=== PATIENT | female | born 1985 | race Caucasian/White ===

== ENCOUNTER 2024-05-07 09:34 | Day surgery (SDC) | payer BC ==
[2024-05-07 10:06] LABS: Absolute Basophils 0.1 K/uL (0-0.5); Absolute Eosinophils 0.8 K/uL (0-0.5); Absolute Lymphocytes (CBC) 3.3 K/uL (0.7-4.9); Absolute Monocytes 0.5 K/uL (0.1-1.3); Absolute Neutrophil 6.8 K/uL (1.8-8.0); Basophils % 1.2 % (0-1.3); Hematocrit 44.9 % (36.0-45.0); Hemoglobin 14.7 g/dL (12.0-15.0); Lymphocytes % 28.5 % (15.3-44.8); MCH 28.1 pg (27.0-35.0); MCHC 32.7 g/dL (32.0-36.0); MCV 86.1 fL (80-100); MPV 7.7 fL (7.6-11.3); Monocytes % 4.2 % (3.3-12.3); Neutrophils % 59.1 % (41.7-73.7); Nucleated Red Blood Cells % 0.1 % (0-0); Platelets 418 thou/uL (152-406); RBC Red Blood Cell Count 5.22 M/uL (3.86-4.86); Red Cell Distribution Width 16.2 % (12.1-15.2)
[2024-05-07] MEDS ORDERED: Ringers Lactate 1,000 ML IV ONE (10:06)
[2024-05-07 10:17] LABS: Anion Gap 7.2 mEq/L (5.0-15.0); Potassium 4.2 mEq/L (3.5-5.1)
[2024-05-07] MEDS ORDERED: MIDAZOLAM HCL 2 MG/2 ML INJ ONE (11:55)
[2024-05-07] MEDS ORDERED: propofoL 200 MG/20 ML VIAL IV ONE (11:55)
[2024-05-07] MEDS ORDERED: FENTANYL CITR 100 MCG/2 ML ONE (11:55)
[2024-05-07] MEDS ORDERED: KETOROLAC 30 MG/ML INJ ONE (11:55)
[2024-05-07] MEDS ORDERED: ONDANSETRON 4 MG/2 ML VIAL ONE (11:55)
[2024-05-07] MEDS ORDERED: LIDOCAINE 1% MPF 5 ML VIAL ONE (11:55)
[2024-05-07] MEDS: CIPROFLOXACIN 400mg IV 400 MG/200 ML BAG IV ONE (12:35)
[2024-05-07] MEDS: BUPIVACAINE 0.5% PF 10 ML VIAL ONE (12:55)
--- NOTE | 2024-05-07 13:10 | P.BOP ---
Preoperative diagnosis: right ankle infected subQ mass with abscess Postoperative diagnosis: same Primary procedure: Excisional biopsy of right ankle infected subQ mass with abscess Secondary procedure: 3x3x0.5cm Estimated blood loss: <5cc Specimen: culture, mass Findings: see dicta Anesthesia: General Complications: None Transferred to: Recovery Room Condition: Good
[2024-05-07] MEDS: HYDROMORPHONE HCL 1 MG/ML INJ ONE (13:50)
[2024-05-07] MEDS: ONDANSETRON 4 MG/2 ML VIAL ONE (14:01)
[2024-05-07 14:37] VITALS: BP 109/67; TEMP 97; O2SAT 96
[2024-05-07] MEDS ORDERED: HYDROCODONE/APAP 10/325 TAB ONE (14:41)
[2024-05-07] MEDS: HYDROCODONE/APAP 10/325 TAB PO ONE (14:46)
--- NOTE | 2024-05-08 01:06 | OP ---
Date of Procedure: 05/07/2024 Surgeon: Kwesi Bill MD Preoperative Diagnosis: Right ankle infected subcutaneous mass with abscess. Postoperative Diagnosis: Right ankle infected subcutaneous mass with abscess. Procedure: Excisional biopsy of right ankle infected subcutaneous mass with abscess drainage about 3 x 3 x 0.5 cm and the abscess is extended to 5 x 5 cm. Estimated Blood Loss: Less than 5 cc. Findings: The patient has a mass infected with a cavity, which is the cavity is about 5 x 5 cm, but the dense tissue and the mass is about 3 x 3 cm that was the one sent to the pathologist. Complications: None. Anesthesia: General plus local. Packing: Iodoform. Indications: This is a case of a 38-year-old patient who came to us with an infected mass in the rig ht ankle. Etiologies are known. Treated with antibiotics on and off, cannot resolve, still draining , and she was sent to us for evaluation. The patient understands the need for debridement and excisi onal biopsy of the mass with drainage of an abscess, which include, but not limited to infection, ble eding, damage to adjacent structures, anesthesia complication, recurrence, WI, and even . She a lso understands this may not relieve any symptoms. She might need more than one surgical interventio n. If we see in the next few weeks that does not improve, we might even have to check for osteomyeli tis or if we see during the case that it goes that way. She understood and signed the consent. Description Of Procedure: The patient was brought to the operating room, placed in supine position. Anesthesia was induced without complication. Right ankle was prepped and draped in usual sterile fa shion. Local anesthesia was applied after a time-out, followed by sharp incision of the skin. The m ass tissue was removed leading into a cavity, which is about 5 x 5 cm. The area was irrigated. Hemo stasis was obtained, although we did not feel the bone at this moment, we are very close to it. The area was irrigated. Cultures were done. Hemostasis was done and then the area was packed with iodof orm. The patient tolerated the procedure well. The patient sent to recovery in stable condition. T he sponge counts and instrument counts are correct. Disposition: Home. Condition: Stable. Iodoform packing daily after the next 48 hours. [facility] up [facility] since she goes to the primary doctors in that area. JOSE A/IGNACIO Voice ID: [id number] Report ID: [id number]
== END 2024-05-07 15:02 | disposition home or self-care (01) ==
LOC: OR 09:34
PROVIDERS: ATTEND Surgery
PROC: 0JBN0ZZ Excision of Right Lower Leg Subcutaneous Tissue and Fascia, Open Approach (ICD-10-PCS; principal; 2024-05-07 12:30)
DX: L02.415 Cutaneous abscess of right lower limb (principal); L57.0 Actinic keratosis; L08.9 Local infection of the skin and subcutaneous tissue, unspecified
CPT/HCPCS: 87070; 85025; 80048; 36415; 87205 ×2; 87075; 11403; J2704; J2003; J2250; J3010; J1171; J2405 ×2; J0744; J7120; 88304